=== PATIENT | male | born 1965 | race Caucasian/White ===

== ENCOUNTER 2022-01-17 17:26 | Emergency (ER) | payer OTHER ==
[~2022-01-17] VITALS: Ht 170.2 cm; Wt 81.6 kg
[2022-01-17 17:28] VITALS: BP 94/53
--- NOTE | 2022-01-17 17:31 | NUR ---
PT AQUILINO FUENTES, VIA GURNEY TO BED 12.
--- NOTE | 2022-01-17 17:39 | NUR ---
56 Y/O Male BIBA s/p accidental self inflicted laceration to left palm while trying to "open a jar". Pt is AOX4, denies any medical history. Left hand without s/sx of active bleeding at this time. Pt states he has not had a TDAP within 10 years.
[2022-01-17] MEDS ORDERED: ACETAMINOPHEN EXTRA STRENGTH 500 MG TAB PO ONE (18:10)
[2022-01-17] MEDS ORDERED: NACL 0.9% 1,000 ML IV ONE (18:10)
[2022-01-17] MEDS ORDERED: BACITRACIN OINT 500 UNITS/GM PKT TP ONE (18:10)
[2022-01-17] MEDS ORDERED: LIDOCAINE 2% 1000 MG/50 ML VIAL INJ ONE (18:10)
--- NOTE | 2022-01-17 18:21 | NUR ---
PT L PALM IRRIGATED.
[2022-01-17] MEDS ORDERED: BACI1PAC6 TP (18:57)
[2022-01-17 19:14] VITALS: BP 127/65
--- NOTE | 2022-01-17 19:16 | NUR ---
Patient discharged with v/s stable. Written and verbal after care instructions given and explained. Patient verbalized understanding. Ambulatory with steady gait. All questions addressed prior to discharge. Advised to follow up with PMD. EXPLAINED TO COME BACK FOR SUTURE.
--- NOTE | 2022-01-20 08:39 | NUR ---
LATE ENTRY- IV NORMAL SALINE DISCONTINUED AT 1915.
== END 2022-01-17 19:16 | disposition home or self-care (01) ==
LOC: MED 17:26
DX: S61.412A Laceration without foreign body of left hand, initial encounter (principal); F15.90 Other stimulant use, unspecified, uncomplicated; Z72.89 Other problems related to lifestyle; W18.30XA Fall on same level, unspecified, initial encounter; Y93.89 Activity, other specified; Y92.89 Other specified places as the place of occurrence of the external cause; Y99.8 Other external cause status
CPT/HCPCS: 12002; 73130; 90471; 90715; 99283; J2001; Q0092

== ENCOUNTER 2022-01-17 21:23 | Emergency (ER) | payer OTHER ==
[~2022-01-17] VITALS: Ht 170.2 cm; Wt 68.0 kg
[~2022-01-17 21:23] MED LIST: BACI1PAC6 TP
--- NOTE | 2022-01-17 21:26 | NUR ---
GINA DAHL TAKEN TO BED #6
[2022-01-17 21:29] VITALS: BP 143/81
--- NOTE | 2022-01-17 21:36 | NUR ---
56 Y/O MALE BIBA FOR WOUND RECHECK. PT WAS SEEN AT [facility] EARLIER BY DR DU AND WAS DISCHARGED AFTER RECIEVING STITCHES TO LEFT HAND. PT CALLED 911 AGAIN BECAUSE OF BLEEDING TO HIS ND. PER EMS PT HAS APPROX 20 ML OF BLOOD LOSS. BLEEDING CONTROLLED NOW. NO PMH/RX NKA
--- NOTE | 2022-01-17 21:38 | NUR ---
ERMD AT BEDSIDE EXAMINING WOUND
[2022-01-17] MEDS ORDERED: LIDOCAINE 2% 100 MG/5 ML SYR IVP ONE (21:40)
[2022-01-17] MEDS ORDERED: LIDOCAINE 2% 1000 MG/50 ML VIAL INJ ONE (21:40)
[2022-01-17 22:46] VITALS: BP 134/75
--- NOTE | 2022-01-17 22:48 | NUR ---
Patient discharged with v/s stable. Written and verbal after care instructions given and explained. Patient verbalized understanding. Ambulatory with steady gait. All questions addressed prior to discharge. Advised to follow up with PMD. VSS, A/OX4, UNLABORED BREATHING, AMBULATORY, AND CALM DEMEANOR.
== END 2022-01-17 22:48 | disposition home or self-care (01) ==
LOC: MED 21:23
DX: S61.412A Laceration without foreign body of left hand, initial encounter (principal); F17.200 Nicotine dependence, unspecified, uncomplicated; Z72.89 Other problems related to lifestyle; Z98.890 Other specified postprocedural states; X58.XXXA Exposure to other specified factors, initial encounter; Y93.89 Activity, other specified; Y92.89 Other specified places as the place of occurrence of the external cause; Y99.8 Other external cause status
CPT/HCPCS: 99283; J2001